=== PATIENT | male | born 1985 | race Caucasian/White ===

== ENCOUNTER 2022-03-09 19:41 | Emergency (ER) | payer BC, SELFPAY ==
[2022-03-09 20:05] VITALS: BP 134/78; PULSE 84; RESP 16; TEMP 36.4; O2SAT 99; BMI 26.5
--- NOTE | 2022-03-09 20:20 | CRLHL7_ITS ---
For Patients: As a result of the Cures Act, medical imaging exams and procedure reports are released immediately into your electronic medical record. You may view this report before your referring provider. If you have questions, please contact your health care provider. Indication: Chest pain. Technique: PA and lateral chest x-rays Comparison: None. Findings: The cardiac silhouette and pulmonary vasculature are within normal limits. The lungs are clear bilaterally. There is no pneumothorax. Impression: No evidence of acute pulmonary disease. Dictated by Feroz Elder MD @ 03/09/2022 11:02:23 PM (Electronically Signed)
--- NOTE | 2022-03-09 20:21 | ED_ITS ---
HPI - General Adult General Time Seen by Provider: 20:11 Date Seen: 03/09/22 Chief complaint: Chest Pain Stated complaint: Chest Pain Time Seen by Provider: 03/09/22 20:04 Source: patient Mode of arrival: ambulatory Limitations: no limitations History of Present Illness HPI narrative: 36-year-old male who comes in today with chest pain. He woke at about 5:00 a.m. this morning with some upper chest pain, thought it was heartburn in drinks milk. Went back to sleep. Will begin and continue to have chest pain. It got better throughout the morning but then returned this evening. Pain is substernal and radiates into his right jaw as well as into his teeth. When it comes it is constant and aching Maalox and heartburn medication for this with minimal improvement. Does not seem to be worse with activity. Epigastric tenderness earlier but that is resolved although the chest pain has remained. He says he feels a little bit ?off? today, no fevers or chills, the, vomiting, or diarrhea. No family history of heart disease, does not smoke. Does have a history of high blood pressure. Related Data Home Medications Medication Instructions Recorded Confirmed Concerta 03/09/22 lisinopril 03/09/22 Allergies Allergy/AdvReac Type Severity Reaction Status Date / Time No Known Drug Allergies Allergy Verified 03/09/22 20:10 [facility] Medical History (Updated 03/09/22 @ 22:14 by Josue Smith MD) ADHD Hypertension Surgical History (Updated 03/09/22 @ 21:07 by Donta Holland RN) No significant past surgical history Social History Smoking Status: Never smoker Do you use any of these nicotine containing products: None How often do you have a drink containing alcohol: never How often do you have six or more drinks on one occasion: Never AUDIT-C Alcohol total score: 0 Non-prescribed substance use: denies use Exam Const: Vital Signs, click to edit/add: Vital Signs - 24 hr 03/09/22 20:05 Temperature 97.6 F Pulse Rate [Right Pulse Oximeter] 84 Respiratory Rate 16 Blood Pressure [Ri ght Upper Arm] 134/78 Pulse Oximetry 99 Documenting provider has reviewed patient's vital signs: yes Course Reevaluation(s) Reevaluation #1: Labs so far reassuring including normal troponin, normal liver function tests and normal lipase. Pain is resolved after GI cocktail. Repeat discharged if these are normal, will need outpatient follow-up. Time: 21:11 Reevaluation #2: Repeat troponin is 0. Patient remains pain-free. He is stable for discharge with outpatient follow-up for stress testing and further evaluation. Will be started on PPI. Time: 22:29 Vital Signs Vital signs: Initial Vital Signs Temperature 97.6 F 03/09/22 20:05 Temperature Source Temporal Artery Scan 03/09/22 20:05 Pulse Rate 84 03/09/22 20:05 Respiratory Rate 16 03/09/22 20:05 Blood Pressure 134/78 03/09/22 20:05 Blood Pressure Mean 96 03/09/22 20:05 Blood Pressure Position Sitting 03/09/22 20:05 Pulse Oximetry 99 03/09/22 20:05 Oxygen Delivery Method 03/09/22 20:05 Vital Signs Temperature 97.6 F 03/09/22 20:05 Pulse Rate 84 03/09/22 20:05 Respiratory Rate 16 03/09/22 20:05 Blood Pressure 134/78 03/09/22 20:05 Pulse Oximetry 99 03/09/22 20:05 Temperature 97.6 F 03/09/22 20:05 Pulse Rate 84 03/09/22 20:05 Respiratory Rate 16 03/09/22 20:05 Blood Pressure 134/78 03/09/22 20:05 Pulse Oximetry 99 03/09/22 20:05 Medical Decision Making MDM Narrative Medical decision making narrative: Patient seen examined, prior records are reviewed. Differential diagnosis includes but not limited to musculoskeletal pain, rib fracture, hemothorax, pneumothorax, pneumonia, pulmonary embolism, acute coronary syndrome, pericarditis, myocarditis, esophagitis, gastroesophageal reflux. Patient with chest pain radiating into his neck and back teeth. Is currently having mild pain in the emergency department although better than earlier. Took medication for heartburn with minimal relief. Other than gender and hypertension, no other cardiac risk factors. Initial EKG is reassuring. Labs are ordered along with aspirin and GI cocktail. Lab Data Labs: Lab Results 03/09/22 03/09/22 03/09/22 Range/Units 20:20 20:20 20:30 Sodium 135 (135-149) mmol/L Potassium 4.0 (3.6-5.1) mmol/L Chloride 100 (96-114) mmol/L Carbon Dioxide 31 (20-32) mmol/L BUN 15 (5-24) mg/dL Creatinine 1.0 (0.5-1.5) mg/dL Estimated Creat Clear 104.43 Estimated GFR 99 ml/min Glucose 92 (60-115) mg/dL Calcium 8.9 (8.4-10.6) mg/dL Total Bilirubin 0.8 (0.1-1.5) mg/dL Direct Bilirubin 0.3 (0.0-0.5) mg/dL AST 27 (12-35) U/L ALT 28 (4-50) U/L Alkaline Phosphatase 72 (40-150) U/L NT-Pro-B Natriuret Pep Cancelled Total Protein 6.8 (6.0-8.3) g/dL Albumin 4.5 (3.3-5.0) g/dL Lipase 61 (23-300) U/L SARS-CoV-2 (PCR) Negative SARS-CoV-2 (Negative) POC Troponin I 0.00 L (0.01-0.04) ng/ml Imaging Data Chest x-ray: Attestation: I have reviewed the pertinent imaging results. My impression: negative Radiologist's impression: negative ECG Data Attestation: I personally reviewed and interpreted this ECG as follows: Prior ECG tracings: not available for review (No prior) Interpretation: Performed at 8:14 p.m. demonstrates normal sinus rhythm with right axis deviation, [place] 148, QTC in, rate 83, no acute ST elevations or depressions. No prior for comparison. Repeat EKG performed at 10:14 p.m. demonstrates sinus rhythm with sinus arrhythmia rate 87, no acute ST elevations or depressions, [place] 146, acute from prior of earlier today. Discharge Plan Discharge Clinical Impression: Chest pain Condition: Improved Instructions: Chest Pain (ED) Additional Instructions: Follow-up with your primary care doctor this week for further evaluation. Take Protonix or Prilosec twice a day for the next seven days. Activity Level: No Restrictions Discharge Diet: Regular Prescriptions: No Action Concerta 0RF lisinopril 0RF Stand Alone Forms: Design A Info Instructions
[2022-03-09] MEDS: ASPIRIN 81 MG TAB.CHEW 324 MG PO (20:37)
[2022-03-09] MEDS: GI COCKTAIL (VISC LIDO/ANTACID) 30 ML PO (20:38)
[2022-03-09] MEDS: LACTATED RINGERS 1000 ML 1,000 ML IV (20:38)
[2022-03-09 20:54] LABS: Albumin* 4.5 g/dL (3.3-5.0); Chloride* 100 mmol/L (96-114)
[2022-03-09 20:55] LABS: Sodium* 135 mmol/L (135-149)
[2022-03-09 20:57] LABS: Alkaline Phosphatase* 72 U/L (40-150); Aspartate Amino Transferase* 27 U/L (12-35); Bilirubin Direct* 0.3 mg/dL (0.0-0.5); Bilirubin Total* 0.8 mg/dL (0.1-1.5); Blood Urea Nitrogen* 15 mg/dL (5-24); Calcium* 8.9 mg/dL (8.4-10.6); Carbon Dioxide* 31 mmol/L (20-32); Est. Creatinine Clearance* 104.43; Estimated Glomerular Filt Rate 99 ml/min; Glucose* 92 mg/dL (60-115); Lipase* 61 U/L (23-300); Total Protein* 6.8 g/dL (6.0-8.3)
[2022-03-09 20:58] LABS: Alanine Aminotransferase* 28 U/L (4-50)
[2022-03-09 21:46] LABS: SARS PCR* Negative SARS-CoV-2 (Negative)
[2022-03-09 22:52] VITALS: BP 124/78; PULSE 81; RESP 16; TEMP 36.4; O2SAT 99
[2022-03-09 22:53] VITALS: BP 135/78; PULSE 84; RESP 16; TEMP 36.4
== END 2022-03-09 22:54 | disposition home or self-care (01) ==
LOC: ED 22:51
PROVIDERS: Emergency Provider Family Medicine
DX: R07.9 Chest pain, unspecified (principal)
CPT/HCPCS: 36415; 71046; 80048; 80076; 83690; 83880; 84484; 87635; 93005; 99284; 99285; A9270; J7120